=== PATIENT | male | born 1945 | race Caucasian/White ===

== ENCOUNTER 2025-06-30 13:54 | Emergency (ER) | payer MEDICARE, SELFPAY ==
[2025-06-30 13:56] VITALS: BP 105/88
[2025-06-30 13:59] VITALS: BP 105/88; BMI 26.6
[2025-06-30 14:00] VITALS: BP 147/91
[2025-06-30 14:14] LABS: Hematocrit 38.9 % (39.0-52.0); Hemoglobin 12.8 g/dL (13.0-18.0); Mean Corp Hgb Conc. 32.9 g/dL (33.0-37.0); Mean Corpuscular Volume 96.3 fL (80.0-94.0); Nucleated Red Blood Cells % 0 % (-); Platelet Count 265 10^3/uL (130-400); Red Cell Dist. Width 12.6 % (11.5-14.5)
[2025-06-30 14:36] LABS: Albumin 4.0 g/dl (3.5-5.0); Alkaline Phosphatase 93 U/L (38-126); Blood Urea Nitrogen 20 mg/dl (9-20); Calcium 8.7 mg/dl (8.4-10.2); Carbon Dioxide 30 mmol/L (22-30); Chloride 102 mmol/L (98-107); Magnesium 2.4 mg/dl (1.6-2.3); Potassium 4.5 mmol/L (3.5-5.1); Sodium 136 mmol/L (135-145); Total Protein 6.8 g/dl (6.3-8.2)
[2025-06-30 14:46] LABS: ALT (SGPT) 38 U/L (0-50); AST (SGOT) 41 U/L (17-59); Estimated Creatinine Clearance 58 ml/min; Glucose 117 mg/dl (70-99); eGFR > 60.00
[2025-06-30 14:47] LABS: Troponin I < 0.012 ng/ml
--- NOTE | 2025-06-30 15:21 | ED.GENMED ---
History of Present Illness
General
Chief Complaint: Chest Pain
Source: patient
Exam Limitations: none
Time Seen by Provider: 06/30/25 14:52
Nursing documentation reviewed up to this point in time: agreed with
History of Present Illness
History of Present Illness:
79 yo male with hx a-fib two unsuccessful ablations, now on Fleccanide 150 BID and Metoprolol 25 OD (Fleccanide increased fro 100 BID in March)
Pt states he was experiencing palpitations starting at approximately 6 p.m. last night and continuing until 9 a.m. this a.m., lasting for approximately 15 hours.
He describes chest pain localized under his left breast, exacerbated by movement and deep breaths, or coughs but not present while at rest.
The patient mentions frequent fibrillation despite medication adjustments. He is under the care of a lighting equipment operator, Daniel Yang and Juan Ramon Art, saw him last week. Has had two previous unsuccessful ablations and currently has a [employer]
pacemaker. The patient is concerned about ongoing palpitations and is wary of further ablations.
Past History
Past History
ED Past Medical History: Arrthythmia, Hypercholesterolemia and Other (Paroxysmal atrial fib, depression, hyperlipidemia)
ED Past Surgical History: Cardiac (Pacemaker, cardiac ablation x 2) and Tonsilectomy
Social History
Tobacco: Non-smoker
Alcohol: None
Personal: Single
Family History
Family History: Other (Atrial fibrillation)
Review of Systems
Review of Systems
Allergies reviewed?: Yes
All Other Systems: ROS reviewed and negative except as documented in HPI and ROS
Constitutional: Denies fever
Respiratory: Reports cough (Has had a mild cough with postnasal drip, this cough aggravates his anterior chest wall pain); Denies trouble breathing
Cardiac: Reports chest pain and palpitations
ABD/GI: Denies abdominal pain or nausea
Musculoskeletal: Denies edema
Skin: Reports no symptoms
Neurological: Reports no symptoms
Phy Exam
Physical Exam
Physical Exam:
GENERAL: No acute distress. A&Ox3.
CONSTITUTIONAL: Afebrile.
EYES: clear, conjunctivae normal
ENMT: moist mucus membranes, Pharynx nl
RESPIRATORY: Regular respirations, nonlabored, lungs clear.
CARDIOVASCULAR: Regular rate and rhythm, no murmurs, no rubs.
GI: Soft, nontender, normal BS
MUSCULOSKELETAL: Moves with ease. Well perfused. No edema. Point tender intercostal space of ribs 7-8 anteriorly.
SKIN: Warm, dry, pink
PSYCH: Normal mood and affect. Well kept, interactive and appropriate
NEUROLOGIC: Awake, alert and oriented. No focal neurological deficits
Scores
Heart Score for Chest Pain Patients
STEMI patient?: Not applicable
Course
Orders/Labs/Results
Orders:
Orders
06/30/25 13:58
Electrocardiogram (*1) Urgent
Reason for Study: Chest Pain
CXR2 [CR Chest - 2 Views ] Urgent
Comment:
Reason For Exam: chest pain with SOB
06/30/25 13:59
EKG- Treatment ONCE
06/30/25 14:06
Complete Blood Count/With Diff Urgent
Comprehensive Metabolic Panel Urgent
Magnesium Urgent
NT-proBNP Urgent
Troponin I Urgent
06/30/25 15:23
pacemaker [Interrogate Pacemaker- Treatment] ONCE
Abnormal Lab Results
06/30/25
14:06
RBC 4.04 L 10^6/uL
(4.70-6.10)
Hgb 12.8 L g/dL
(13.0-18.0)
Hct 38.9 L %
(39.0-52.0)
MCV 96.3 H fL
(80.0-94.0)
MCH 31.7 H pg
(27.0-31.0)
MCHC 32.9 L g/dL
(33.0-37.0)
Absolute Monos (auto) 1.1 H 10^3/uL
(0.1-0.6)
Monocytes % 12.2 H %
(1.7-9.3)
Glucose 117 H mg/dl
(70-99)
Magnesium 2.4 H mg/dl
(1.6-2.3)
06/30/25 14:06
06/30/25 14:06
Vital Signs
Initial and Last Documented VS:
Initial Vital Signs
BP
105/88
06/30/25 13:56
Last Documented Vital Signs
Temp Pulse Resp BP Pulse Ox
98.0 F 60 10 147/91 99
06/30/25 13:59 06/30/25 15:45 06/30/25 15:45 06/30/25 14:00 06/30/25 15:30
MDM/Problems Addressed
Differential Diagnosis Includes:
A-fib, SVT,
Musculoskeletal chest wall pain
MDM/Problems Addressed:
79 yo male with hx a-fib two unsuccessful ablations, now on Fleccanide 150 BID and Metoprolol 25 OD (Fleccanide increased fro 100 BID in March)
Pt states he was experiencing palpitations starting at approximately 6 p.m. last night and continuing until 9 a.m. this a.m., lasting for approximately 15 hours.
He describes chest pain localized under his left breast, exacerbated by movement and deep breaths, or coughs but not present while at rest.
The patient mentions frequent fibrillation despite medication adjustments. He is under the care of a lighting equipment operator, Daniel Yang and Juan Ramon Art, saw him last week. Has had two previous unsuccessful ablations and currently has a [employer]
pacemaker. The patient is concerned about ongoing palpitations and is wary of further ablations.
Patient's chest pain is immediately reproducible with point to palp patient between ribs 7 and 8 anteriorly on the chest wall. Consistent with musculoskeletal pain. It is reassuring that it occurs only with certain movements, coughing and direct
palpitation suggesting musculoskeletal origin.
EKG: Dual paced rhythm, rate unchanged from October
CBC, CMP unremarkable
Troponin WNL
BNP within normal limits for his age
Chest x-ray NAD
Pacemaker interrogation read, between March 02 and June 30, 2025 there were 0 V. tach beats, 0 fast AMV beats, 67 AT/AF beats: Nothing to explain patient's symptoms.
Pt reassured of neg workup
Asymptomatic during this visit
Will call his PCP for follow up
Is comfortable going home
Acute Exacerbation and/or Progression of Chronic Illness: Arrhythmia
*Pulse Oximetry
SaO2: 100
Oxygen Mode of Delivery: Room air
Patient hypoxic: no
*EKG
EKG Intrepretation Date: 06/30/25
Interpretation: abnormal
Comparison EKG: no changes
Heart Rate: 60
Rate: normal
Rhythm: av sequential
[place]: normal axis
QRS Pattern: wide non-specific
Ischemia: no ischemia
*Critical Care Note
Total Time (30-74mins, 75-104mins- exclusive of procedures): Not Applicable
ED Attending Note
-
Portions of this chart may have been created with voice recognition software.� Occasional wrong word or��sound alike� substitutions may have occurred due to the inherent limitations of voice recognition software.
Discharge Plan
Departure
Patient Disposition: Home (Routine Discharge)
Date of Disposition: 06/30/25
Time of Disposition: 15:57
Patient with high blood pressure during this ER visit?: No
Condition: Good
Discharge Problem:
Palpitations
Instructions: Palpitations - ED (DC)
Prescriptions:
No Action
paroxetine HCl 20 MG tablet
20 mg PO QPM
lovastatin 20 MG tablet
20 mg PO HS
Co Q-10 300 MG capsule
300 mg PO DAILY
Centrum Silver 1 EACH tablet
1 ea PO DAILY
Eliquis 5 MG tablet
5 mg PO BID Qty: 60 6RF
flecainide 100 MG tablet
100 mg PO BID Qty: 60 11RF
Rx Instructions:
Increase flecainide to 100 mg twice a day
metoprolol succinate 12.5 MG tablet extended release 24 hr
12.5 mg PO DAILY Qty: 30 11RF
Referrals:
Jack Burger, DO [Family Provider] - Call in 1-3 days for appt
Activity Restrictions/Additional Instructions:
As we discussed, nothing worrisome in your workup here today.
Your EKG is unchanged from your last one in October
Your chest x-ray is normal
Your blood work is normal
Your pacemaker check shows no significant abnormal beats.
Interventions
Interventions:
*General Assessment Last Done: 06/30/25 13:59
*Neglect/Abuse Screening Last Done: 06/30/25 13:59
*ED COVID-19 Vaccine History Last Done: 06/30/25 13:59
*ED Influenza Vaccine History Last Done: 06/30/25 13:59
[facility] Fall Risk Assessment Tool Last Done: 06/30/25 13:59
*Risk Screen - Suicide (C-SSRS) Last Done: 06/30/25 13:59
*Nursing Disposition Last Done: 06/30/25 16:49
ED- Cardiac Assessment Last Done: 06/30/25 13:59
Discharge Date and Time
Discharge Date/Time: 06/30/25 16:50
Print Language: RUSSIAN
== END 2025-06-30 16:50 | disposition home or self-care (01) ==
LOC: EMR 13:54
PROVIDERS: Student in an Organized Health Care Education/Training Program; EMERGENCY PHYSICIAN Emergency Medicine; FAMILY PHYSICIAN Family Medicine
DX: R00.2 Palpitations (principal); I48.0 Paroxysmal atrial fibrillation; E78.00 Pure hypercholesterolemia, unspecified; F32.A Depression, unspecified; Z79.01 Long term (current) use of anticoagulants; Z95.0 Presence of cardiac pacemaker
CPT/HCPCS: 99284; 93288; 71046; 80053; 83735; 83880; 84484; 85025; 93005